=== PATIENT | male | born 1995 | race Caucasian/White ===

== ENCOUNTER 2017-06-16 17:26 | Emergency (ER) | payer OTHER, BC, SELFPAY ==
[2017-06-16 17:27] VITALS: BP 148/94; PULSE 111; RESP 18; TEMP 36.6; O2SAT 100; BMI 31.4
[2017-06-16 17:32] VITALS: PULSE 89; RESP 16; O2SAT 99
--- NOTE | 2017-06-16 17:46 | ED.VISSUMM ---
- ER Visit Summary Date of Service: 06/16/17 Chief Complaint: Abscess History of Present Illness: The patient is a 21 M with an abscess that started gradually on his right neck. Denies fever or systemic symptoms. Denies any injury. Physical Examination: 2 cm area of induration over his right neck near the anterior cervical lymph nodes. No drainage or fluctuance. Otherwise exam normal. Test Results: None indicated Emergency Department Course and Treatment: Warm compresses, Bactrim, Keflex, follow-up with primary care. Treatment Plan: As above Disposition: Discharged Impression: 1. Right neck cutaneous abscess This note was generated with [employer] dictation software. It may contain incorrect words, spelling, and punctuation that were not noted in review of the chart prior to signing ED Disposition - Plan for ED Patient: Chief Complaint: Abscess Referrals: Sarah Joyce PA [Primary Care Provider] -
--- NOTE | 2017-06-16 17:48 | ED.DEP ---
ED Disposition - Plan for ED Patient: Chief Complaint: Abscess Instructions: ED Staph Infec Abx Tx Only Prescriptions: Cephalexin [Keflex] 500 mg PO Q6 #28 cap Smz/Tmp Ds [Bactrim Ds] 1 tab PO BID #14 tab Referrals: Sarah Joyce PA [Primary Care Provider] -
[2017-06-16 18:02] VITALS: BP 153/94; PULSE 104; RESP 16; O2SAT 100
[2017-06-16] MEDS: Cephalexin 250 MG Capsule 500 MG PO (18:02)
[2017-06-16] MEDS: Smz/Tmp Ds Tablet 1 TABLET PO (18:02)
== END 2017-06-16 18:04 | disposition home or self-care (01) ==
LOC: ED 17:53
PROVIDERS: Emergency Provider Emergency Medicine; Family Provider Physician Assistant; PCP Physician Assistant
DX: L02.11 Cutaneous abscess of neck (principal); Z72.0 Tobacco use
CPT/HCPCS: 99283

== ENCOUNTER 2017-11-08 23:36 | Emergency (ER) | payer OTHER, BC, SELFPAY ==
[2017-11-08 23:37] VITALS: BP 162/76; PULSE 93; RESP 16; TEMP 36.4; O2SAT 98; BMI 34.2
--- NOTE | 2017-11-08 23:38 | RAD_ITS ---
STUDY: X-RAY - RIGHT ANKLE REASON FOR EXAM: Male, 22 years old. Injury TECHNIQUE: 3 view(s) of the ankle. COMPARISON: None. FINDINGS: There is swelling around the lateral malleolus but no acute fractures or dislocations. The ankle mortise and the subtalar joints are normal. RAD/Ankle min 3 Views IMPRESSION: Swelling around the lateral malleolus. No acute fractures Electronically Signed: Naren Stearns, at 0:15 EDT Tel , Service support ,
--- NOTE | 2017-11-08 23:52 | ED.VISSUMM ---
- ER Visit Summary Date of Service: 11/08/17 Chief Complaint: Acute right ankle pain and swelling after stepping in a hole History of Present Illness: The patient is a 22 M no significant past medical history of than a prior cardiac lesion. Patient states he is walking off the porch and 90 stepped in hole twisted his right ankle. This occurred around 8:30 PM. He denies any other injuries. He denies ever needing surgery or having a broken ankle. The greatest pain is on the lateral malleolus. But is ankle is swollen diffusely. And he states he is unable to bear weight. Denies any knee or hip pain. Denies other injuries. Physical Examination: Well-appearing young male. Vital signs are stable afebrile. H EENT exam atraumatic. Pupils round reactive light. C-spine nontender. Neck full range of motion. Lungs clear to auscultation bilaterally. Heart regular rhythm no murmur. Chest wall nontender. Abdomen soft nontender. Pelvic girdle intact. Both upper extremities and left lower extremity is nontender. Normal range of motion. No deformities. His right hip and knee are nontender. Normal range of motion. His right distal lower leg and ankle are swollen. Tender. Primarily over the lateral malleolus. No gross bony deformity. Achilles tendon intact. Limited dorsi and plantar flexion due to pain and swelling. Foot is nontender. Neurovascular intact. He is able to wiggle his toes. Normal touch sensation. Normal cap refill. Palpable DP pulse. Neurologic exam is normal. Test Results: Right ankle x-ray was obtained 3 views no acute fracture nor dislocation. Soft tissue swelling. X-rays consistent with a right ankle sprain. Emergency Department Course and Treatment: Discussed with patient and he prefers a air cast and does not want crutches at this time. Treatment Plan: Ice and elevate. Motrin for pain and inflammation. Initially nonweightbearing and increase activity as tolerated. Follow-up if not improving. Disposition: Discharge Impression: Acute right ankle sprain This note was generated with [employer] dictation software. It may contain incorrect words, spelling, and punctuation that were not noted in review of the chart prior to signing ED Disposition - Plan for ED Patient: Disposition: Home or Assisted Living Chief Complaint: Lower Extremity Injury Instructions: ED Sprain Ankle W X Ray Referrals: Sarah Joyce PA [Primary Care Provider] - 1 Week if not improving Additional Instructions: Ice and elevate Motrin for pain and swelling. No weight bearing initially. Increase activity as tolerated.
--- NOTE | 2017-11-08 23:55 | ED.DCSUM_ITS ---
- ER Visit Summary Date of Service: 11/08/17 Chief Complaint: Acute right ankle pain and swelling after stepping in a hole History of Present Illness: The patient is a 22 M no significant past medical history of than a prior cardiac lesion. Patient states he is walking off the porch and 90 stepped in hole twisted his right ankle. This occurred around 8: 30 PM. He denies any other injuries. He denies ever needing surgery or having a broken ankle. The greatest pain is on the lateral malleolus. But is ankle is swollen diffusely. And he states he is unable to bear weight. Denies any knee or hip pain. Denies other injuries. Physical Examination: Well-appearing young male. Vital signs are stable afebrile. H EENT exam atraumatic. Pupils round reactive light. C-spine nontender. Neck full range of motion. Lungs clear to auscultation bilaterally. Heart regular rhythm no murmur. Chest wall nontender. Abdomen soft nontender. Pelvic girdle intact. Both upper extremities and left lower extremity is nontender. Normal range of motion. No deformities. His right hip and knee are nontender. Normal range of motion. His right distal lower leg and ankle are swollen. Tender. Primarily over the lateral malleolus. No gross bony deformity. Achilles tendon intact. Limited dorsi and plantar flexion due to pain and swelling. Foot is nontender. Neurovascular intact. He is able to wiggle his toes. Normal touch sensation. Normal cap refill. Palpable DP pulse. Neurologic exam is normal. Test Results: Right ankle x-ray was obtained 3 views no acute fracture nor dislocation. Soft tissue swelling. X-rays consistent with a right ankle sprain. Emergency Department Course and Treatment: Discussed with patient and he prefers a air cast and does not want crutches at this time. Treatment Plan: Ice and elevate. Motrin for pain and inflammation. Initially nonweightbearing and increase activity as tolerated. Follow-up if not improving. Disposition: Discharge Impression: Acute right ankle sprain This note was generated with [employer] dictation software. It may contain incorrect words, spelling, and punctuation that were not noted in review of the chart prior to signing ED Disposition - Plan for ED Patient: Disposition: Home or Assisted Living Chief Complaint: Lower Extremity Injury Instructions: ED Sprain Ankle W X Ray Referrals: Sarah Joyce PA [Primary Care Provider] - 1 Week if not improving Additional Instructions: Ice and elevate Motrin for pain and swelling. No weight bearing initially. Increase activity as tolerated.
--- NOTE | 2017-11-09 00:22 | ED.DEP ---
ED Disposition - Plan for ED Patient: Disposition: Home or Assisted Living Chief Complaint: Lower Extremity Injury Instructions: ED Sprain Ankle W X Ray Referrals: Sarah Joyce PA [Primary Care Provider] - 1 Week if not improving Additional Instructions: Ice and elevate Motrin for pain and swelling. No weight bearing initially. Increase activity as tolerated.
[2017-11-09 00:35] VITALS: RESP 14
== END 2017-11-09 00:35 | disposition home or self-care (01) ==
PROVIDERS: Emergency Provider Emergency Medicine; Family Provider Physician Assistant; PCP Physician Assistant
DX: S93.401A Sprain of unspecified ligament of right ankle, initial encounter (principal); Z72.0 Tobacco use; X50.1XXA Overexertion from prolonged static or awkward postures, initial encounter; Y93.01 Activity, walking, marching and hiking; Y92.007 Garden or yard of unspecified non-institutional (private) residence as the place of occurrence of the external cause; Y99.8 Other external cause status
CPT/HCPCS: 73610; 99282

== ENCOUNTER 2018-02-17 20:15 | Emergency (ER) | payer OTHER, BC, SELFPAY ==
[2018-02-17 20:16] VITALS: BP 143/86; PULSE 82; RESP 18; TEMP 37.3; O2SAT 98; BMI 34.4
--- NOTE | 2018-02-17 20:19 | RAD_ITS ---
STUDY: X-RAY - PELVIS REASON FOR EXAM: Male, 22 years old. Trauma TECHNIQUE: One view of the pelvis was obtained. COMPARISON: None. FINDINGS: There is a non-specific bowel gas pattern. Normal visualized soft tissue structures. Normal bilateral iliac wings, sacroiliac joints and visualized sacrum. Normal visualized bilateral superior and inferior pubic rami. Normal pubic symphysis. Normal ischial tuberosities. Normal visualized right femoral head. Normal right acetabulum. Normal right hip joint. Normal visualized left femoral head. Normal left acetabulum. Normal left hip joint. RAD/Pelvis 1 or 2 Views IMPRESSION: Normal x-ray examination of the pelvis. Electronically Signed: Alexander Gutierrez MD at 21:10 EDT , Service support ,
--- NOTE | 2018-02-17 20:20 | RAD_ITS ---
STUDY: X-RAY - LEFT TIBIA AND FIBULA REASON FOR EXAM: Male, 22 years old. Trauma TECHNIQUE: 2 view(s) of the tibia and fibula were obtained. COMPARISON: None. FINDINGS: Normal visualized tibia. Normal visualized fibula. The soft tissue structures are unremarkable. RAD/Tibia & Fibula 2 Views IMPRESSION: Normal x-ray examination of the tibia and fibula. Electronically Signed: Alexander Gutierrez MD at 21:10 EDT , Service support ,
--- NOTE | 2018-02-17 20:30 | RAD_ITS ---
STUDY: X-RAY - LEFT FEMUR REASON FOR STUDY: Male, 22 years old. Trauma TECHNIQUE: Radiological exam, femur, minimum 2 views COMPARISON: None. FINDINGS: Normal visualized femur. Normal visualized soft tissue structure. RAD/Femur Min 2 Views IMPRESSION: Normal x-ray examination of the femur. Electronically Signed: Alexander Gutierrez MD at 21:10 EDT , Service support ,
[2018-02-17] MEDS: HYDROcodone Bitartrate/Apap 5/325 Tablet PO ×2 (21:18→22:19)
[2018-02-17] MEDS: Naproxen 500 MG Tablet PO (21:18)
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
[2018-02-17 22:18] VITALS: BP 126/82; PULSE 78; RESP 16; O2SAT 100
== END 2018-02-17 22:22 | disposition home or self-care (01) ==
PROVIDERS: Emergency Provider Emergency Medicine; Family Provider Physician Assistant; PCP Physician Assistant
DX: S79.922A Unspecified injury of left thigh, initial encounter (principal); S89.92XA Unspecified injury of left lower leg, initial encounter; Z72.0 Tobacco use; V20.0XXA Motorcycle driver injured in collision with pedestrian or animal in nontraffic accident, initial encounter; Y93.55 Activity, bike riding; Y92.410 Unspecified street and highway as the place of occurrence of the external cause; Y99.8 Other external cause status
CPT/HCPCS: 72170; 73552; 73590; 99283

== ENCOUNTER 2018-11-29 19:43 | Emergency (ER) | payer OTHER, BC, SELFPAY ==
[2018-11-29 19:43] VITALS: BMI 31.4
[2018-11-29 19:44] VITALS: BP 147/87; PULSE 89; RESP 16; TEMP 36.7; O2SAT 99; BMI 33.2
--- NOTE | 2018-11-29 20:28 | ED.DCSUM_ITS ---
- ER Visit Summary Date of Service: 11/29/18 Chief Complaint: Sunburn History of Present Illness: The patient is a 23 M presenting with sunburn. Patient states this started on Friday. He states he went fishing with his work. He was outside most of the day. He did not use sunscreen or wear a shirt. He states when he returned home he had redness all over. Over the weekend he has had nausea and vomiting. He had 2 episodes of vomiting today. He states he is unable to keep anything down. He denies abdominal pain. Denies other complaints. States he has tried aloe and ibuprofen at home. Physical Examination: Vitals are stable. Patient is afebrile. Alert no acute distress. HEENT exam is unremarkable. Neck is supple. Lungs are clear and equal bilaterally. Heart is regular rate and rhythm. Abdomen is soft nontender nondistended. Extremities are unremarkable. Skin diffuse erythema trunk, upper and lower extremities. Small blisters posterior left shoulder No focal neurologic deficit. Remainder of exam is unremarkable. Emergency Department Course and Treatment: Patient given IV fluids, Zofran, Toradol. Basic metabolic panel is unremarkable. On reevaluation, patient is feeling much improved. He is given prescription for Zofran. He is advised to follow up with his primary care physician. Advised return ED if worsening complaints. Disposition: Discharge home Impression: Sunburn This note was generated with [employer] dictation software. It may contain incorrect words, spelling, and punctuation that were not noted in review of the chart prior to signing ED Disposition - Plan for ED Patient: Instructions: Sunburn (Sun Poisoning) Prescriptions: Ondansetron [Zofran Odt] 4 mg PO Q8H PRN PRN #10 tab PRN Reason: Nausea Prescription Printed Referrals: Sarah Joyce PA [Primary Care Provider] -
[2018-11-29] MEDS: Ketorolac 30 MG/ML Syringe IV (20:33)
[2018-11-29] MEDS: Ondansetron 4 MG/2 ML Vial IV (20:33)
[2018-11-29] MEDS: 0.9% Normal Saline 1,000 ML 1000 ML IV ×2 (20:33→21:21)
[2018-11-29 20:48] LABS: Anion Gap 3 (5-15); BUN 16 mg/dL (7-18); BUN/Creat Ratio 14.8 RATIO (10-20); Calcium,Total 8.9 mg/dL (8.5-10.1); Chloride 105 mmol/L (98-107); Creatinine, Serum 1.08 mg/dL (0.70-1.30); EST Glomerular Filtration Rate 92 mL/min (>60); Est Glom Filt Rate - Afr Amer 111 mL/min (>60); Glucose 84 mg/dL (74-106); Potassium 3.6 mmol/L (3.5-5.1); Sodium Level 137 mmol/L (136-145)
--- NOTE | 2018-11-29 20:55 | ED.DEP ---
ED Disposition - Plan for ED Patient: Instructions: Sunburn (Sun Poisoning) Prescriptions: Ondansetron [Zofran Odt] 4 mg PO Q8H PRN PRN #10 tablet PRN Reason: Nausea Referrals: Sarah Joyce PA [Primary Care Provider] -
== END 2018-11-29 21:37 | disposition home or self-care (01) ==
LOC: ED 20:24
PROVIDERS: Emergency Provider Emergency Medicine; Family Provider Physician Assistant; PCP Physician Assistant
DX: L55.9 Sunburn, unspecified (principal); Z72.0 Tobacco use
CPT/HCPCS: 80048; 96361; 96374; 96375; 99283; J7030; J2405

== ENCOUNTER 2019-04-08 10:26 | Emergency (ER) | payer OTHER, BC, SELFPAY ==
[2019-04-08 10:28] VITALS: BP 159/71; PULSE 75; RESP 16; TEMP 36.1; O2SAT 98; BMI 34.0
--- NOTE | 2019-04-08 10:39 | RAD_ITS ---
STUDY: X-RAY - LEFT FOOT CLINICAL: Male, 23 years old. TECHNIQUE: view(s) of the foot. COMPARISON: None. FINDINGS: There is oblique fracture involving the proximal phalanx of the fifth toe. No other fracture or dislocation seen. No soft tissue swelling identified. RAD/Foot min 3 Views IMPRESSION: Oblique fracture proximal phalanx of the fifth toe. Electronically Signed: Irma Goss, at 12:45 EST Tel , Service support ,
--- NOTE | 2019-04-08 11:27 | ED.VISSUMM ---
- ER Visit Summary Date of Service: 04/08/19 Chief Complaint: Left fifth toe pain History of Present Illness: The patient is a 23 M who sees Faustino Steinbergon. He reports that yesterday he stubbed his left fifth toe against a concrete block. He has a sharp pain is 10-10 with movement 7 out of 10 at rest. He denies any other injuries. Is not taking anything for pain. Physical Examination: Vitals: Stable. Afebrile. General: Well-nourished and well-developed. Head: Normocephalic atraumatic. Neck: Supple, no lymphadenopathy. No JVD. Nontender. Cardiovascular: Regular rate and rhythm. No murmurs. Respiratory: No respiratory distress. Clear to auscultation bilaterally. Abdominal: Soft, nontender, nondistended, normal bowel sounds. No guarding, rebound, or peritoneal signs. Back: Nontender. Extremities: Contusion and severe tenderness palpation over the proximal phalanx of his fifth toe. There is no pain over the remainder of his foot. Skin: Normal color, no rash. Neurologic: Alert and oriented ?3. Cranial nerves II through XII are intact. Normal strength and sensation. Psych: Normal affect. Test Results: X-ray shows a an oblique fracture of the proximal phalanx of his left fifth toe. Emergency Department Course and Treatment: Patient refused pain medications. He is resting comfortably. Treatment Plan: Patient had his toe jameson taped. He will be discharged in a postop shoe. Instructed to follow-up Dr. Zacarias in 1 week for another exam. Return to the emergency department for any worsening symptoms. Disposition: To home in improved and stable condition. Impression: 1. Left fifth toe proximal phalanx fracture. This note was generated with [employer] software. It may contain incorrect words, spelling, and punctuation that were not noted in review of the chart prior to signing ED Disposition - Plan for ED Patient: Instructions: FRACTURE, Toe [Closed] Referrals: Alexander Zacarias DPM [STAFF PHYSICIAN] - 1 Week
== END 2019-04-08 11:38 | disposition home or self-care (01) ==
LOC: ED 10:51
PROVIDERS: Emergency Provider Emergency Medicine; Family Provider Physician Assistant; PCP Physician Assistant
DX: S92.512A Displaced fracture of proximal phalanx of left lesser toe(s), initial encounter for closed fracture (principal); Z72.0 Tobacco use; W22.09XA Striking against other stationary object, initial encounter; Y93.89 Activity, other specified; Y92.89 Other specified places as the place of occurrence of the external cause; Y99.8 Other external cause status
CPT/HCPCS: 73630; 99283

== ENCOUNTER 2020-08-09 09:00 | Outpatient (RCR) | payer OTHER, SELFPAY ==
--- NOTE | 2020-08-09 09:00 | BH.SGPN.GN ---
Behaviors/Verbalizations/Mental Status: []Client alert and oriented, disheveled appearance. Eye contact good. Motor activity appropriate. Speech within normal limits. Affect congruent, mood anxious. Thoughts linear, logical, no signs of hallucinations or delusions. Reviewed client?s symptom tracker, no risk for suicidal ideation, plan, or intent as of 08/09/20 Client Response/Progress/Benefit: []Client responded well to session, receptive to support from peers. Client's first day of IOP tx and he shared he had never done group therapy before. Client's check-in was brief and client did not share about his stressors. Client reported he wants to reduce anger, anxiety, and depression while in IOP. Client appeared to benefit from gaining connections and support from peers. Will continue PHP tx to prevent decompensation, learn healthy coping skills, and improve overall functioning. Narrative Note: []
--- NOTE | 2020-08-09 10:40 | BH.NA_ITS ---
Physical Data - Vital Signs Pulse Rate: 69 Blood Pressure: 131/76 - Height/Weight Height: 1.75 m Weight:: 99.79 kg Weight in Pounds: 220.0 lbs Current Medication Compliance - Medication Compliance Do you take your medication as prescribed?: No Nutritional History - Appetite Nutritional Instructions:: If client shows signs of a swallowing problem, weight change of 10 pounds or more in the last month, or is on a diabetic diet, the physician will review and request a dietitian consult, as appropriate. All unintentional weight loss will be referred to the physician for decision on need for dietitian consult. Describe your appetite:: Poor Additional nutritional information:: Client reports decreased appetite, states he is only eating 1 meal per day. Functional Assessment - Sleep Pattern Describe any problems with sleeping: Client states for the past week, he has only been sleeping about 4 hours per night. Client states he has a hard time falling asleep and a hard time staying asleep. - Activities Motor Activity:: Functional Sensory/Communication Assess - Communication Problems Do you have difficulty understanding what people are saying?: No Medical Problems/History - Cardiac Conditions Cardiovascular: Other (See comments) Comments:: history of cardiac ablation, heart murmur - Pain Assessment Do you have acute or chronic pain?: No Surgical History - Surgical History Have you had any surgeries? If so, list type and date:: Yes - cardiac ablation around age 14 Substance Abuse - Substance Abuse Please describe substance abuse in the last 30 days:: Client states he drinks 2-3 beers per day about 3-4 nights per week. Client states he uses this to help him get to sleep. Discussed with client that alcohol intake should be decreased to 1-2 beers a couple of times a week max per Dr. Woody instruction, client voices understanding. Client states he has been using chewing tobacco on and off since he was 20 years old, states he is using now. Client reports occasional marijuana use. Client states he drinks 1-2 pops per day, or sometimes drinks one energy drink that he sips on all day. Client states due to his history of ablation, he has palpitations when he drinks too much caffiene. Mental Status Summary - Mental Status Significant Findings/Observations on Appearance and Mood:: Client is alert and oriented x 4. Client is casually groomed. Client is wearing a mask due to pandemic. Client makes good eye contact. Client's voice is regular rate and volume. Client makes logical associations. Client denies delusions/hallucinations. Client denies SI. Suicide Assessment - Suicidal Ideation Are you currently or have you been suicidal in the past?: Yes - past SI, denies today Suicidal Intentional Rating Scale (SIRS): Suicidal thoughts (past) Physician Notification: If Active suicidal thoughts/Will not contract for safety is checked, contact physician and document in the Physician Notification section below. Past Psychiatric History - MH Treatment Hx Past Psychiatric Medications:: Zoloft Age of first mental health symptoms: Client states he started on Zoloft for depression about a year ago. Describe (age, circumstance, etc) any past hospitalizations: None Current providers for mental health treatment (counselor, psychiatrist, embedded case manager, etc.): None Fall Risk Assessment - Age Age: Less than 60 - Mental Status Mental Status: Willing & able to ask for assistance when needed - Physical Status Physical Status: No problems - Impairments Impairments: None - Elimination Elimination: Continent AND independent - Gait or Balance Gait or Balance: Walks independently - Hx of Falls History of falls in the past 6 months: No known history - Medications/Substances Medications/substances used within the past 24 hours or ordered to administer: None of the medications/substances list above - Total Score Total Points:: 0 RN Summary of Impressions - Impressions Recommendations: Include psychiatric and medical issues, treatment planning recommendations, and discharge planning needs. Impressions: Psychiatric Issues: Major depressive disorder, single episode, severe without psychosis; rule out intermittent explosive disorder; PTSD; generalized anxiety disorder; alcohol use disorder; Cluster B traits - Level of Care How do the client's current symptoms and functional deficits support need for this level of care?: Client was referred to IOP by his family after symptoms of depression worsened, and a few days ago client said he just wanted to be done with it all. Client states he wanted to get mental health help. Client has had worsening depression and anger for the past year since his divorce started. Client states in the past couple of weeks, he has had suicidal thoughts. Client denies SI at this time. Client endorses drinking alcohol several times per week, anger outbursts, driving my motorcycle fast, crying spells and feeling overwhelmed. Client states he has his dad and his ex-girlfriend as supports. PHP/IOP will promote gains and prevent further decompensation while providing social support and skills training.
--- NOTE | 2020-08-09 11:08 | BH.SGPN.GN ---
Behaviors/Verbalizations/Mental Status: [] Eye contact is good. Alert and oriented. Motor activity is appropriate. Appearance is casual. grooming is disheveled, not showered. Speech is Appropriate. Mood is anxious and depressed. Affect constricted. Thoughts are linear and logical. No evidence of psychosis or hallucinations. Client Response/Progress/Benefit: [] Client first day in treatment. Appeared engaged during discussion AEB taking notes and did well to complete activity and process with the group. Client was willing to complete the worksheet in which he was challenged to develop a personal SMART goal. Client chose the goal to start practicing healthier skills for reducing anger. Client struggled to make this goal measurable but was willing to work with therapist on doing so individually. Client noted that this will benefit him by improving his personal relationships. Client identified barriers which included: changing plans, toxic people, mistrust. Client opted not to share personal goal with remainder of group. Benefited from this group by developing a short-term SMART goal related to mental health. Will continue PHP tx to increase healthy coping skills, challenge distorted thoughts and reduce anger, and prevent decompensation. Narrative Note: []
[2020-08-09 12:46] VITALS: BP 131/76; PULSE 69
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
--- NOTE | 2020-08-09 13:28 | BH.DR.ITP ---
Initial Treatment Plan - Patient Information Visit Information: ADMISSION DATE: EXPECTED LOS: 4-6 weeks - Problems/Symptoms Problem #1:: Depression Symptom:: Sadness, crying, hopelessness, worthlessness, biological disruption of sleep, decreased appetite, fatigue, history of suicidal ideation. Problem #2:: Anxiety Symptom:: Rumination, panic attacks, worry, avoidance, nightmares, reexperiencing
--- NOTE | 2020-08-09 16:09 | BH.MDN ---
Multi-Disciplinary Note - Note 45-min Individual Time Started:: 09:05 Date: 08/09/20 Purpose of session/treatment goals addressed:: Purpose of session was to assess pt's current symptoms and stressors. Additional focus on identifying treatment goals for PHP level of care and gathering background information. Eye Contact:: Fair Motor Activity:: Restless Appearance:: Disheveled Speech:: Appropriate Mood:: Euthymic Affect:: Congruent Thoughts:: Linear, Logical, No evidence of hallucinations/delusions noted Staff Interventions:: Therapist used open ended questions to elicit pt's current symptoms and stressors. Therapist elicited background information to help identify potential areas contributing to current problems. Collaborated with pt to identify treatment plan goals for PHP level of care. Provided support by using active listening and validating emotions. Client Response:: Pt reported he is seeking treatment because of depression, anxiety, bad attitude and anger is out of control. Pt reported he has struggled with anger issues for a long time, stating anger runs in my family. Pt stated his depression and anxiety started after the divorce process began 1 1/2 years ago. Pt reported still not officially . Pt stated his ex filed a Civil Protection Order (BEHAVIORAL MODIFICATION ASSISTANT) against him in September 2019, trying to keept pt from his son. Pt reported he is going to court soon to see the results of this BEHAVIORAL MODIFICATION ASSISTANT, currently still gets visitation with his son. Pt stated he doesn't want to lose his rights to his son. Pt reported he wants to learn how to manage his anger better. Pt stated his anger negatively impacts his relationships. Pt reported his anger outbursts has resulted in a break up 4 days ago with his girlfriend of 6 months. Pt stated although they are no longer together she is still supporting him during this time of getting help. Risks/Concerns:: Pt denies current suicidal ideation, plan or intention to date. Progress Toward Goals/Plan:: No progress noted given pt's first week in treatment. Session focused on identifying treatment goals for PHP level of care. Pt to continue PHP to decrease anger outbursts, improve emotion regulation and prevent decompensation. Time Stopped:: 09:45
--- NOTE | 2020-08-11 11:58 | BH.COMM_ITS ---
Communication Note - Communication with Client Communication Note: Pt was excused from PHP yesterday (08/10/20) due to having a mandatory skills assessment for job he was recently hired at. Pt emailed this therapist the evening of 08/10/20 stating that he would be late today due to having to meet with employee benefits attorney however expected to be in by 9am. At 10am no word from patient. Reached out via phone and emial with no response. Called emergency contact and they are unsure where he is at 11:30a. After calling emergency contact pt responsed via email that he is still with employee benefits attorney and will be in on Friday.
--- NOTE | 2020-08-14 09:00 | BH.SGPN.GN ---
Behaviors/Verbalizations/Mental Status: []Client alert and oriented, casually dressed. Eye contact fair. Motor activity appropriate. Speech within normal limits. Affect congruent, mood anxious. Thoughts linear, logical, no signs of hallucinations or delusions. Reviewed client?s symptom tracker, no risk or thoughts of suicide ideation, plan, or intent as of 08/14/20. Client Response/Progress/Benefit: []Client responded well to session, engaged throughout and participated in group discussion. Client reported feeling ?content? this morning. Client stated his goal as ?controlling anger, depression, and anxiety symptoms.? Identified healthy coping skills as diaphramic breathing and thought challenging. Client could not provide an example of when he challenged his thoughts over the weekend. Client reported his positives as having support around him. Reported his stressor as sleeping only 4 hours daily due to the stress of his divorce. Client shared his ex-girlfriend helps calm him down to fall asleep at night. Client appears to minimize his mental health symptoms. Benefited from group as client gained insight from other group members. Will continue PHP to promote the use of healthy coping skills, prevent decompensation, and challenge negative thoughts. Narrative Note: []
--- NOTE | 2020-08-14 10:10 | BH.SGPN.GN ---
Behaviors/Verbalizations/Mental Status: []Client alert and oriented, casually dressed and grooming fair. Eye contact fair. Motor activity appropriate. Speech within normal limits. Affect constricted, mood dysthymic. Thoughts linear, logical, no signs of hallucinations or delusions. Client Response/Progress/Benefit: []Pt passive participant AEB pt providing no input throughout discussion, appeared to listen to group discussion AEB pt nodding at others comments. Pt connected with the topic of resilience and agreed with the group that it is possible to become more resilient. Listened to group identify the positive and negative forces in life that impact a person?s resilience. Listened to discussion about barriers to resiliency. Pt seemed to benefit from increasing awareness of factors that influence personal resilience and understand importance of improving resiliency. Pt to continue IOP to increase healthy coping, maintain safety and prevent decompensation. Narrative Note: []
--- NOTE | 2020-08-14 11:15 | BH.SGPN.GN ---
Behaviors/Verbalizations/Mental Status: []Client alert and oriented, casually dressed, grooming dishevelled. Eye contact fair. Motor activity appropriate. Speech within normal limits. Affect constricted, mood anxious, depressed, agitated. Thoughts linear, logical, no signs of hallucinations or delusions. Client Response/Progress/Benefit: [] Client responded well to session, engaged and participated throughout discussion. Client participated in the discussion of how each resiliency component can help increase personal resiliency. Client worked with group to identify ways to practice each of the resiliency traits reviewed in daily life. Client took an active participatory role within the activity and worked with group to identify strategies for improving group?s ability to reach identified goal. Appeared to benefit from group as client discussed how resiliency impacts daily functioning. Identified wanting to work on improving personal resilience factor of ?move towards goals? by identifying small daily tasks he can complete towards reaching this larger goal. Will continue PHP to improve the use of healthy coping skills, improve mood stability, and prevent decompensation. Narrative Note: []
--- NOTE | 2020-08-14 12:30 | BH.MDN ---
Multi-Disciplinary Note - Note 30-min Individual Time Started:: 12:05 Date: 08/14/20 Purpose of session/treatment goals addressed:: Purpose of session was to assess pt's current symptoms and stressors. Addtional focus on identifying triggers for anger and strategies to manage anger. Eye Contact:: Fair Motor Activity:: Appropriate Appearance:: Disheveled Speech:: Appropriate Mood:: Euthymic Affect:: Congruent Thoughts:: Linear, Logical, No evidence of hallucinations/delusions noted Staff Interventions:: Therapist used open ended questions to elicit pt's current symptoms and stressors. Therapist inquired more information about pt's past suicidal behavior due to inconsistent accounts given to therapist versus psychiatrist. Therapist helped pt identify anger trigger and elicited what strategies work to help him manage anger at this time. Worked with pt to identify additional anger reduction strategies. Client Response:: Pt stated he is feeling more hopeful today because met with a hunting sales associate to discuss his divorce case. Pt reported the hunting sales associate is confident pt can get more visitation with his son. Pt reported his weekend went well, spending quality time with his son. Pt reported friendship with his ex-girlfriend is going well, stated he finds it helpful to have someone to support him through all of this. When asked about pt threatening to kill himself a few weeks ago on his ex-girlfriends doorstep pt told therapist I'm too tired to think. Pt did not go into further detail. Pt identified his divorce and soon to be ex- to be anger triggers. Pt stated when triggered he has a short fuse, yelling about little things. Pt reported riding his motorcycle and hanging out with friends are things that help him calm down. With help pt identified sitting outside as an additional coping skill he could try to help with relaxation. Pt reported he needed to end session early today because has a job interview. Risks/Concerns:: Denies current suicidal ideation, plan or intention to date. Pt future focused. Agreeable to go to nearest emergency room or call 911 if feels unable to keep self safe. Progress Toward Goals/Plan:: Progress noted per pt's report of improved mood and increased hopefulness. Pt's mood seems very dependent on circumstances of the moment. Pt struggles with emotion regulation and distorted thought patterns which negatively impact relationships. Pt is to continue PHP to increase healthy coping skills, decrease anger outbursts and prevent decompensation. Time Stopped:: 12:30
--- NOTE | 2020-08-15 12:58 | BH.COMM ---
Communication Note - Communication with Client Communication Note: This therapist talked with pt's mom about her concerns of pt's aggressive behavior yesterday. This therapist shared that pt has been leaving PHP early the past two days and missed two sessions last week. This therapist shared will be talking to pt tomorrow that he cannot continue program if he cannot stay for the hand stonecutter of the program. Pt's mom stated she would talk to pt tonight because he needs help and needs to do the program. Pt's mom states she will contact this therapist tomorrow.
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
--- NOTE | 2020-08-17 13:00 | BH.COMM ---
Communication Note - Communication with Client Communication Note: Pt's mom contacted this therapist today informing therapist that pt will not commit to PHP level of care anymore. Pt's mom states pt will start IOP level of care on 08/18/20 at 3 days a week.
== END 2020-08-09 23:59 ==
LOC: BHPHP 09:00
PROVIDERS: PCP Physician Assistant; Referring Provider Psychiatry & Neurology Psychiatry; Visit Provider Psychiatry & Neurology Psychiatry
DX: F32.2 Major depressive disorder, single episode, severe without psychotic features (principal); F43.10 Post-traumatic stress disorder, unspecified; F41.1 Generalized anxiety disorder; Z72.89 Other problems related to lifestyle
CPT/HCPCS: H0035; 90834; G0410

== ENCOUNTER 2020-08-14 09:00 | Outpatient (RCR) | payer OTHER, SELFPAY ==
[2020-08-10 00:55] VITALS: BP 131/76; PULSE 69
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
--- NOTE | 2020-08-16 10:00 | BH.SGPN.GN ---
Behaviors/Verbalizations/Mental Status: [] Eye contact is good. Motor activity is appropriate. Appearance is casual. Speech is Appropriate. Mood is anxious/irritable. Affect is congruent. Thoughts are linear and logical. No evidence of psychosis. Client Response/Progress/Benefit: [] Patient participated at times during group discussions however did participate in group activity. Attentive during discussion on defining self-care and its benefits for mental wellness. Attentive during education and group's discussion on consequences of not performing self-care which included; consistent stress,increased irritability, physical health issues, and negative impact to relationships, work, and other aspects of functioning. After they identified the benefits and consequences group identified the obstacles and myths associated with self-care which keep them from performing self-care. Contribute to identifying 10 myths of self-care which included; You don't deserve it; You don't need it; Can't do it unless everything else is completed; Its selfish; Time-consuming; [place]; It has to be fun; Self-care ignores others. Pt then joined a small group and challenged these myths among its members. Benefited from group by increasing awareness and benefits of self-care. Pt will continue in PHP to maintain safety, decrease explosive angry outbursts, and develop healthy ways to manage stress and emotions. Narrative Note: []
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
--- NOTE | 2020-08-18 14:56 | BH.COMM ---
Communication Note - Communication with Client Communication Note: Pt and his mother had discussion with therapist on 08/16/20 about leaving PHP early on several occasions due to new job. Refer to therapist's note. Pt is not able to paticipate in PHP hours due to new job and does not appear to be engaged in treatment. Per therapist after family talked pt was agreeable to continue in treatment however at IOP level of care. Plan was to start today. Pt did not show. Did not respond to attempt to reach out. Contacted his mother (emergency contact) and no response either. Last meeting with patient was on 08/16/20 and at that point no SI or reason for concern. No indication to contact law enforcement for wellness check as pt appeared more interested in starting job than continuing with treatment.
== END 2020-08-16 15:02 | disposition home or self-care (01) ==
LOC: BHPHP 09:00
PROVIDERS: PCP Physician Assistant; Referring Provider Psychiatry & Neurology Psychiatry; Visit Provider Psychiatry & Neurology Psychiatry
DX: F32.2 Major depressive disorder, single episode, severe without psychotic features (principal); F43.10 Post-traumatic stress disorder, unspecified; F41.1 Generalized anxiety disorder; Z72.89 Other problems related to lifestyle
CPT/HCPCS: H0035; 90837; G0410

== ENCOUNTER 2022-02-05 12:11 | Emergency (ER) | payer OTHER, BC, MEDICAID, SELFPAY ==
[2022-02-05 12:11] VITALS: BP 123/81; PULSE 75; RESP 14; TEMP 37.2; O2SAT 96; BMI 35.4
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
[2022-02-05 13:31] VITALS: BP 124/77; PULSE 841; RESP 16; O2SAT 98
--- NOTE | 2022-02-06 12:31 | ED.RN ---
PT CALLED STATING DR AVENDAÑO TOLD HIM TO CALL THE ER AND THAT DR AVENDAÑO WOULD CALL IN A ANTI INFLAMMATORY FOR HIM. CHECKED DR AVENDAÑOS DISCHARGE NOTES AND NOTHING REGARDING THIS WAS STATED. EXPLAINED TO PT THAT ELIZABETH WAS SUGGESTED BY DR AVENDAÑO IN HIS DC PAPERS. ALSO GAVE MORE EXAMPLES OF THINGS THAT COULD BE TRIED TO GET SOME RELIEF. PT PROCEEDED TO HANG UP WHILE IDEAS WERE BEING GIVEN.
== END 2022-02-05 13:32 | disposition home or self-care (01) ==
PROVIDERS: Emergency Provider Emergency Medicine; PCP Physician Assistant; Visit Provider Emergency Medicine
DX: M62.838 Other muscle spasm (principal); E66.9 Obesity, unspecified; F17.210 Nicotine dependence, cigarettes, uncomplicated
CPT/HCPCS: 72040; 99282

== ENCOUNTER 2022-05-11 13:20 | Emergency (ER) | payer OTHER, BC, SELFPAY ==
[2022-05-11 13:22] VITALS: BP 131/79; PULSE 97; RESP 18; TEMP 36.8; O2SAT 96; BMI 34.2
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
== END 2022-05-11 13:45 | disposition home or self-care (01) ==
LOC: ED 13:44
PROVIDERS: Emergency Provider Emergency Medicine; PCP Physician Assistant; Visit Provider Emergency Medicine
DX: T33.532A Superficial frostbite of left finger(s), initial encounter (principal); F17.220 Nicotine dependence, chewing tobacco, uncomplicated; Y99.0 Civilian activity done for income or pay; R20.0 Anesthesia of skin; X31.XXXA Exposure to excessive natural cold, initial encounter
CPT/HCPCS: 99282